=== PATIENT | male | born 1955 | race Two or more races ===

== ENCOUNTER 2021-11-11 09:47 | Emergency (ER) | payer OTHER, SELFPAY ==
--- NOTE | ~2021-11-11 | CT_ITS ---
EXAMINATION: CT brain wo con DATE: 11/11/2021 12:31 INDICATION: Posterior headache. TECHNIQUE: Computed tomography (CT) of the head was performed without intravenous contrast. The mA wa s adjusted according to patient size. Iterative reconstruction technique was employed. The dose-lengt h product was 605.33 mGy-cm. COMPARISON: None FINDINGS: There is no acute ischemic infarct, intracranial hemorrhage, or abnormal mass lesion. The v entricles are normal in size. There is mucosal thickening in the paranasal sinuses. The orbits are no rmal. The mastoid air cells are normal. IMPRESSION: 1. Normal brain. Reviewed, dictated and finalized at location A. IMPRESSION: 1. Normal brain.
[2021-11-11 09:54] VITALS: BP 164/82; PULSE 73; RESP 18; TEMP 36.5; O2SAT 99
--- NOTE | 2021-11-11 09:59 | ECG_ITS ---
Measurements Intervals [place] Rate: 73 P: 64 [place]: 119 QRS: 62 QRSD: 89 T: 66 QT: 351 QTc: 388 Interpretive Statements SINUS RHYTHM WITH SHORT [place] INTERVAL INCOMPLETE RIGHT BUNDLE BRANCH BLOCK PEAKED T-WAVES, SUGGESTS HYPERKALEMIA BASELINE ARTIFACT- I, AVR, AVL ABNORMAL ECG NO PREVIOUS ECG AVAILABLE FOR COMPARISON Electronically Signed On 11-11-2021 10:12:30 CDT by Sergo Sy D.O.
[2021-11-11 11:10] VITALS: BP 158/90; PULSE 62; RESP 16; O2SAT 99
--- NOTE | 2021-11-11 11:11 | PC.NURSE ---
Pt son at bedside reports that he was once put on medication back home in [place] for blood pressure but no longer takes it.
--- NOTE | 2021-11-11 12:25 | ED.GENADULT ---
HPI - General Adult General Chief complaint: Recheck/Abnormal Lab/Rx Stated complaint: BP High x1 Week Time Seen by Provider: 11/11/21 11:55 History of Present Illness HPI narrative: This is a 66-year-old male with history of hypertension presenting to ED with high blood pressure. Patient states his blood pressure has been high around 140/90 for the last week. Patient does not have a primary care physician. He did seek medical care proximally 5 years ago [place] to be treated on a short-term basis for his hypertension. Patient also has a headache. Patient has describes the headache as a numbness in the back of head that comes up over the top of his scalp. It was not sudden in onset. But it is new in nature compared to his old headaches. it is associated with photophobia and phonophobia. Patient also says he hears static in his left ear. The patient denies diplopia, dysarthria, dysphagia or dystaxia, dizziness. he denies any syncopal events. He denies chest pain, difficulty breathing, abdominal pain, urinary symptoms or GI symptoms. Related Data Allergies Allergy/AdvReac Type Severity Reaction Status Date / Time No Known Allergies Allergy Verified 11/11/21 12:55 Review of Systems Review of Systems: CONSTITUTIONAL: Denies night sweats. EYES: No eye pain ENT: Denies rhinorrhea CARDIOVASCULAR: Denies palpitations RESPIRATORY: Denies hemoptysis GASTROINTESTINAL: Denies hematemesis GENITOURINARY: Denies hematuria. SKIN: Denies rash MUSCULOSKELETAL: Denies myalgia. NEUROLOGIC: Denies weakness. PSYCHIATRIC: Denies delusions PMFSH Past Medical History Medical History Hypertension Social History Social History (Updated 11/11/21 @ 12:28 by Corona Cronin MD) Social History: Denies alcohol use, smokes pack cigarettes per day, denies drug use Exam Narrative: APPEARANCE: No apparent distress. Head atraumatic. EYES: PERRLA/EOMI, 2 mm equal and reactive NOSE: Normal no drainage NECK: Supple, Trachea midline RESPIRATORY: CTAB, No increased work of breathing. CARDIOVASCULAR: S1S2 appreciated ABDOMINAL: Soft, nontender, nondistended, MUSCULOSKELETAl: No obvious deformities NEURO: Alert. Cranial nerves 2-12 grossly intact. Sensation light touch, motor function cerebellar function intact for 4 extremities. Gait exam was normal. no nystagmus at rest, test of skew is negative, head impulse was indeterminate. SKIN:: Warm, dry. Normal color PSYCHIATRIC: Normal affect Course Vital Signs Vital signs: Vital Signs Temperature 97.7 F 11/11/21 09:54 Pulse Rate 73 11/11/21 09:54 Respiratory Rate 18 11/11/21 09:54 Blood Pressure 164/82 H 11/11/21 09:54 Pulse Oximetry 99 11/11/21 09:54 Oxygen Delivery Room Air 11/11/21 09:54 Temperature 97.7 F 11/11/21 09:54 Pulse Rate 57 L 11/11/21 12:54 Respiratory Rate 15 11/11/21 12:54 Blood Pressure 145/94 H 11/11/21 12:54 Pulse Oximetry 99 11/11/21 12:54 Oxygen Delivery Room Air 11/11/21 09:54 Procedures Ear Wax Removal Right Ear: Cerumenolytic Used: other (hydrogen peroxide) Results: Re-examined: some cerumen remains TM Examination: TM(s) intact, normal appearance Ear Canal Exam: atraumatic Patient Tolerated Procedure: well Complications: no problems Technique: ear canal irrigated Medical Decision Making MDM Narrative Medical decision making narrative: This is a 66-year-old male presenting to ED with elevated blood pressure and a new headache. Differential includes intracranial hemorrhage, posterior stroke, benign headaches. Patient is concerned more about his blood pressure. I spoke with the patient and his son at length that elevated blood pressure is a chronic problem and needs to be treated chronically by primary care physician. Will order screening lab work and a CT of the head as the patient is over 52 an
[2021-11-11 12:54] VITALS: BP 145/94; PULSE 57; RESP 15; O2SAT 99
[2021-11-11 12:55] LABS: Glucose Point of Care 83 mg/dl (65-105)
[2021-11-11] MEDS: PROCHLORPERAZINE EDISYLATE 10 MG/2 ML VIAL IV PUSH (12:58)
[2021-11-11] MEDS: SODIUM CHLORIDE 0.9% IV 1,000 ML 999 ML IV CONT (12:58)
[2021-11-11] MEDS: diphenhydrAMINE HCl INJ 50 MG/ML VIAL 25 MG IV PUSH (12:58)
[2021-11-11 13:01] LABS: Basophils Percent Auto 0.3 % (0.2-1.2); Eosinophils Absolute Auto 0.1 K/mm3 (0-0.3); Eosinophils Percent Auto 1.1 % (0-4.4); Hematocrit 47.2 % (42.0-52.0); Hemoglobin 16.1 g/dL (14.0-18.0); Immature Granulocyte Absolute 0.02 K/mm3 (0.00-0.031); Immature Granulocyte Percent A 0.2 % (0-0.5); Lymphocytes Absolute Auto 2.01 K/mm3 (0.9-3.2); Lymphocytes Percent Auto 23.1 % (18.3-44.2); Mean Corpuscular HGB Conc 34.1 g/dl (32-36); Mean Corpuscular Volume 96.7 fl (80-100); Mean Platelet Volume 10.4 fl (7.4-10.4); Monocytes Absolute Auto 0.4 K/mm3 (0.1-0.6); Monocytes Percent Auto 4.5 % (2.6-8.5); Neutrophils Absolute Auto 6.2 K/mm3 (1.3-6.7); Neutrophils Percent Auto 70.8 % (45.5-73.1); Platelet Count Result 177 k/mm3 (150-375); Red Blood Count 4.88 M/mm3 (4.6-6.20); Red Cell Distribution Width 11.9 % (11.5-14.5); White Blood Count 8.7 K/mm3 (4.5-10.0)
[2021-11-11 13:13] LABS: Anion Gap 8 mmol/L (8-16); Blood Urea Nitrogen 10 mg/dL (9-20); Calcium 9.1 mg/dL (8.4-10.2); Carbon Dioxide 28 mmol/L (22-30); Chloride 104 mmol/L (98-107); Estimated CRCL calculation 69 ml/min; Estimated Glomerular Filt Rate > 60; Glucose 85 mg/dL (65-110); Potassium 4.1 mmol/L (3.4-5.0); Sodium 140 mmol/L (137-145)
[2021-11-11] MEDS: HYDROGEN PEROXIDE 3% SOLN(*SP) 473 ML BOTTLE (14:37)
[2021-11-11 14:39] VITALS: BP 150/80; PULSE 57; RESP 16; O2SAT 100
== END 2021-11-11 14:41 | disposition home or self-care (01) ==
PROVIDERS: Emergency Provider Emergency Medicine
DX: I10 Essential (primary) hypertension (principal); R51.9 Headache, unspecified; H61.21 Impacted cerumen, right ear; F17.210 Nicotine dependence, cigarettes, uncomplicated
CPT/HCPCS: 36415; 69209; 70450; 80048; 82948; 85025; 93005; 96361; 96365; 96375; 99284; A9270; J0131; J0780; J1200; J7030